=== PATIENT | female | born 1995 | race African-American/Black ===

== ENCOUNTER 2016-07-02 15:43 | Emergency (ER) | payer MEDICAID ==
[2016-07-02 16:56] LABS: BASOPHILS 0.2 % (0.0-2.0); EOSINOPHILS 11.4 % (0-7); HEMATOCRIT 36.4 % (36.0-48.0); HEMOGLOBIN 11.7 g/dL (12-16); IMMATURE GRANULOCYTES 0.2 % (0-5); LYMPHOCYTES 45.3 % (15-50); MCH 28.5 pg (26.0-34.0); MCHC 32.1 g/dL (31.0-37.0); MCV 88.6 fL (80.0-100.0); NEUTROPHILS 35.9 % (40-80); PLATELET COUNT 239 10x3/uL (130-400); RBC 4.11 10x6/uL (4.00-5.40); RDW 13.8 % (11.5-14.5); WBC 5.3 10x3/uL (4.8-10.8)
[2016-07-02 17:10] LABS: HCG SERUM NEGATIVE (NEGATIVE)
== END 2016-07-02 19:15 | disposition home or self-care (01) ==
LOC: D.ER 15:43
PROVIDERS: Emergency Medicine
DX: N93.9 Abnormal uterine and vaginal bleeding, unspecified (principal); R10.2 Pelvic and perineal pain; J06.9 Acute upper respiratory infection, unspecified

== ENCOUNTER 2016-09-06 12:09 | Emergency (ER) | payer MEDICAID | END 2016-09-06 15:03 | disposition home or self-care (01) | LOC: D.ER 12:09 | DX: G43.909 Migraine, unspecified, not intractable, without status migrainosus (principal) ==

== ENCOUNTER 2016-10-28 21:05 | Emergency (ER) | payer MEDICAID ==
[2016-10-28 22:02] LABS: APPEARANCE CLEAR (CLEAR); BILIRUBIN NEGATIVE (NEGATIVE); COLOR YELLOW (YELLOW); GLUCOSE NEGATIVE (NEGATIVE); KETONE NEGATIVE (NEGATIVE); LEUKOCYTE ESTERASE TRACE (NEGATIVE); NITRITE NEGATIVE (NEGATIVE); PROTEIN NEGATIVE (NEGATIVE); SPECIFIC GRAVITY 1.015 (1.005-1.020); UROBILINOGEN NORMAL (NORMAL)
[2016-10-28 22:03] LABS: BACTERIA FEW /hpf (NONE SEEN); EPITHELIAL CELLS OCC /hpf (0-5); HCG URINE NEGATIVE (NEGATIVE); RED CELLS - URINE 0-5 /hpf (0-5); WHITE CELLS - URINE 0-5 /hpf (0-5)
[2016-10-28 23:53] LABS: BASOPHILS 0.1 % (0-2); EOSINOPHILS 8.1 % (0-7); HEMATOCRIT 41.2 % (36.0-48.0); IMMATURE GRANULOCYTES 0.3 % (0-5); LYMPHOCYTES 44.4 % (15-50); MCH 28.7 pg (26.0-34.0); MCHC 31.6 g/dL (31.0-37.0); MCV 90.9 fL (80.0-100.0); MEAN PLATELET VOLUME 9.6 fL (7.4-10.4); MONOCYTES 7.7 % (2-11); NEUTROPHILS 39.4 % (40-80); RBC 4.53 10x6/uL (4.00-5.40); RDW 13.9 % (11.5-14.5); WBC 7.4 10x3/uL (4.8-10.8)
[2016-10-28 23:57] LABS: PLATELET COUNT 300 10x3/uL (130-400)
[2016-10-29 00:23] LABS: ALBUMIN 3.4 g/dL (3.4-5.0); ALKALINE PHOSPHATASE 81 U/L (46-116); ALT (SGPT) 19 U/L (10-68); AMYLASE - SERUM 82 U/L (25-115); BILIRUBIN - TOTAL 0.15 mg/dL (0.2-1.3); CALC OSMOLALITY 277 mosm/kg (275-300); CALCIUM 9.2 mg/dL (8.5-10.1); CARBON DIOXIDE 30.7 mmol/L (21.0-32.0); CHLORIDE - SERUM 103 mmol/L (98-107); CREATININE - SERUM 0.9 mg/dL (0.6-1.3); GLUCOSE 91 mg/dL (74-106); LIPASE 162 U/L (73-393); POTASSIUM - SERUM 3.7 mmol/L (3.5-5.1); PROTEIN - SERUM 7.6 g/dL (6.4-8.2); SODIUM 140 mmol/L (136-145); UREA NITROGEN 11 mg/dL (7-18); eGFR NON AFRICAN AMERICAN 85 mL/min (90-120)
== END 2016-10-29 00:40 | disposition home or self-care (01) ==
LOC: D.ER 21:05
PROVIDERS: Family Medicine
DX: N39.0 Urinary tract infection, site not specified (principal); R30.0 Dysuria; R11.2 Nausea with vomiting, unspecified

== ENCOUNTER 2016-12-30 19:12 | Emergency (ER) | payer MEDICAID | END 2016-12-30 21:08 | disposition home or self-care (01) | LOC: D.ER 19:12 | DX: J02.9 Acute pharyngitis, unspecified (principal); F17.200 Nicotine dependence, unspecified, uncomplicated ==

== ENCOUNTER 2019-04-15 14:44 | Emergency (ER) | payer MEDICAID ==
[~2019-04-15] VITALS: Ht 152.4 cm; Wt 107.7 kg
[2019-04-15 14:50] VITALS: BP 122/86; Ht 152.4 cm; Wt 107.7 kg
[2019-04-15] MEDS ORDERED: AUGMENTIN 875-11 TAB PO (15:41)
== END 2019-04-15 15:56 | disposition home or self-care (01) ==
LOC: D.ER 14:44
DX: J32.1 Chronic frontal sinusitis (principal)